=== PATIENT | male | born 1950 ===

== ENCOUNTER → 2022-02-05 | Emergency (ER) | payer OTHER ==
[~2022-02-05] VITALS: Ht 182.9 cm; Wt 77.2 kg
[2022-02-05 22:08] VITALS: BP 152/91
== END | disposition left against medical advice (07) ==
LOC: ER 20:20
DX: S61.210A Laceration without foreign body of right index finger without damage to nail, initial encounter (principal); Z53.21 Procedure and treatment not carried out due to patient leaving prior to being seen by health care provider; W26.0XXA Contact with knife, initial encounter; Y93.89 Activity, other specified; Y92.89 Other specified places as the place of occurrence of the external cause; Y99.8 Other external cause status